=== PATIENT | female | born 1935 | race Caucasian/White ===

== ENCOUNTER 2018-09-10 15:16 | Emergency (ER) | payer OTHER, MEDICARE ==
--- NOTE | 2018-09-10 15:26 | PDOC ---
History of Present Illness - General Chief Complaint: Injury Stated Complaint: UNKNOWN INJURY RT EYE BRUISE Time Seen by Provider: 09/10/18 15:19 History Source: Patient, Care Provider, EMS, Snf Records Exam Limitations: No Limitations - History of Present Illness Initial Comments: 09/10/18 15:19 82 year old female with PMH HTN, basal cell ca, pernicious anemia, insomnia, dementia brought to ED by EMS from [facility] for right facial injury. Per nursing staff pt was found to have bruising to her right periorbital area today. Pt denied fall/injury and does not remember how she obtained the injury. Pt has no complaints. Pt denied chest pain, back pain, neck pain, abdominal pain, vomiting , palpitations, lower extremity swelling. Medical aid at Bedside from [facility] stated pt is at her normal mental baseline. Paperwork indicates pt is not on any anticoagulants. Pt stated she has been attending her daily activities, and feels normal. Allergies: PCN Past History - Past Medical History Allergies/Adverse Reactions: Allergies Allergy/AdvReac Type Severity Reaction Status Date / Time Penicillins Allergy Verified 09/17/15 09:51 Home Medications: Ambulatory Orders Amlodipine Besylate [Norvasc -] 2.5 mg PO DAILY 09/17/15 Calcium Carbonate/Vitamin D3 [Calcium 600 + Vit D Tablet] 1 each PO DAILY Furosemide [Lasix -] 40 mg PO DAILY 09/17/15 Melatonin/Pyridoxine [Melatonin 3 mg Tablet] 3 mg PO HS 09/17/15 Multivitamins [Tab-A-Vit -] 1 tab PO DAILY 09/17/15 Potassium Chloride [K-Dur] 10 meq PO DAILY 09/17/15 Sennosides/Docusate Sodium [Senna-S Tablet] 2 each PO DAILY 09/17/15 Anemia: Yes (NORMOCYTIC) Cancer: Yes (BASAL CELL) HTN: Yes Hypercholesterolemia: Yes - Suicide/Smoking/Psychosocial Hx Smoking History: Current every day smoker Have you smoked in the past 12 months: Yes Number of Cigarettes Smoked Daily: 2 'Breaking Loose' booklet given: 09/17/15 Hx Alcohol Use: Yes (occasional) Review of Systems - Review of Systems Able to Perform ROS?: Yes Comments:: 09/10/18 15:22 General: denied fever, chills, night sweats, generalized weakness. HEENT: admitted to periorbital ecchymoses. denied sore throat, rhinorrhea, ear pain, visual changes. Heart: denied chest pain, palpitations, syncope, lower extremity swelling, diaphoresis. Respiratory: denied shortness of breath, cough, sputum production, hemoptysis. Abdomen: denied abdominal pain, nausea, vomiting, diarrhea, constipation, blood in stool. : denied dysuria, increased urinary frequency, hematuria, urinary incontinence , flank pain. Back: denied back pain. Musculoskeletal: denied joint pain, muscle pain, joint swelling. Neurological: denied headache, dizziness, numbness, tingling, weakness. Skin: admitted to [facility] [place], [place]. denied rash, laceration, abrasion. *Physical Exam - Physical Exam Comments: 09/10/18 15:23 Constitutional: Well-nourished, Well-developed, appearing stated age. HEENT: head is normocephalic. no scalp hematomas. small right sided periorbital ecchymoses. no swelling. no redness. no facial bone tenderness. EOMI. PERRLA. no pain with extraocular motion. Neck: supple. Full ROM. no midline c-spine tenderness. no paraspinal tenderness. Heart: regular rhythm. no murmurs, rubs or gallops. Chest: no tenderness to palpation. Lungs: clear to auscultation bilaterally. no crackles, rhonchi or wheezing. no stridor. Back: no midline T-spine or L-spine tenderness. Hips: pelvis stable. LE equal in length. no external rotation. no tenderness to palpation. Abdomen: soft, nontender. normal bowel sounds. no rebound, guarding, masses. Extremities: Peripheral pulses intact. full ROM bilateral knees, elbows, wrists , shoulders, ankles. Neurological: CN 2-12 intact. Full strenght all extremities. Moves all four extremities. Ambulated with assistance of medical aid without difficulty. Psych: awake, alert, oriented x3. Follows commands. Answers questions appropriately. Forgetful. Medical Decision Making - Medical Decision Making 09/10/18 15:31 82 year old female with above PMH brought to ED by EMS from [facility] for right sided periorbital ecchymoses of unknown injury. Initial Vital Signs Temp Pulse Resp BP Pulse Ox 97.7 F 78 20 177/77 H 99 09/10/18 15:17 02/13/19 15:17 09/10/18 15:17 09/10/18 15:17 09/10/18 15:17 Afebrile. No tachycardia. No tachypnea. Hypertensive. No hypoxia on room air. Labs ordered: none Imaging ordered: none Medications ordered: none Pt has minor ecchymoses, no other signs of serious head injury, will observe and defer imaging at this time. Pt is oriented, but forgetful of why she was brought to the ED. Medical aid stated this is her normal mental baseline. 09/10/18 16:03 Pt reassessed, reported no symptoms. Pt ambulated without assistance to restroom. No evidence of severe head injury, bruising possibly from minor injury and unlikely to be from fall or syncopal episode. Pt discharged. *DC/Admit/Observation/Transfer Diagnosis at time of Disposition: Bruise - Discharge Dispostion Disposition: HOME Condition at time of disposition: Stable Decision to Admit order: No - Referrals - Patient Instructions Printed Discharge Instructions: How to Prevent Falls Additional Instructions: Ele Brodiejani was seen today for bruising to right eye area. No other signs of trauma or fall were identified. Follow up with her primary care doctor in 1-2 days. Her care is not complete until she follows up. Return to the Emergency Department for headache, neck pain, back pain, hip pain , abdominal pain, altered mental status, fever, weakness, numbness, tingling or any other new, worsening or concerning symptoms. - Post Discharge Activity
[2018-09-10 15:41] VITALS: BP 177/77; PULSE 78; TEMP 97.7; BMI 25.9
--- NOTE | 2018-09-10 17:14 | PDOC ---
Attending Attestation - Resident Resident Name: Maribell Beckford - ED Attending Attestation I have performed the following: I have examined & evaluated the patient, The case was reviewed & discussed with the resident, I agree w/resident's findings & plan, Exceptions are as noted - HPI HPI: 09/10/18 17:09 The patient has no complaints and does not know why she is here. She suffers from dementia and is a resident of the dementia unit at [facility]. The staff noted a bruise on the right side of her face this afternoon. No known injury or fall. The patient was not noted to have any symptoms - Physicial Exam PE: 09/10/18 17:10 Alert, cheerful and cooperative, no acute distress. Mild to moderate dementia with confusion but no decreased level of consciousness Afebrile, vital signs normal Head atraumatic. There is no evidence of contusion, hematoma, abrasion, or laceration PERRLA, fundi benign with sharp disc margins and good central venous pulsations. ENT clear There is a small ecchymosis lateral to the right eye in the temporal region. It is flat, there is no evidence of a contusion, abrasion, laceration or facial bone injury. There is no tenderness, crepitus, deformity, or instability. Neck is supple without bruit mass or nodes. There is no point tenderness or deformity of the cervical spine. There is full range of motion without pain Chest clear to P&A. No chest wall or rib cage deformity or tenderness CV regular without murmur rub or gallop pulses full and symmetric no JVD or edema no bruits Abdomen soft nontender without mass or organomegaly. No CVAT No pelvic or spine deformity or tenderness Neurological C2 to 12 intact. Strength full and symmetric. No focal sensory or motor deficits. Gait stable and unimpaired Extremities: No evidence of bone or joint injury, with full range of motion of the hips without limitation or pain Skin clear, no rash, adequate turgor and wet mucous membranes Impression: Ecchymosis of the skin of the face, without evidence of blunt trauma , contusion, or laceration. No suggestion of a fall or loss of consciousness. Probable minor local trauma Plan: Reassure. Observe as necessary. Follow-up if symptoms develop. Fully ambulatory and in no pain or other distress at discharge with her caregiver to follow-up as directed - Medical Decision Making 09/10/18 17:14 See impression and plan above. No significant injury is apparent
== END 2018-09-10 16:10 | disposition home or self-care (01) ==
LOC: FER 15:16
DX: S00.11XA Contusion of right eyelid and periocular area, initial encounter (principal); I10 Essential (primary) hypertension; F03.90 Unspecified dementia, unspecified severity, without behavioral disturbance, psychotic disturbance, mood disturbance, and anxiety; D51.0 Vitamin B12 deficiency anemia due to intrinsic factor deficiency; Z85.828 Personal history of other malignant neoplasm of skin; F17.210 Nicotine dependence, cigarettes, uncomplicated; W18.39XA Other fall on same level, initial encounter; Y93.89 Activity, other specified; Y92.099 Unspecified place in other non-institutional residence as the place of occurrence of the external cause
CPT/HCPCS: 99281-25